=== PATIENT | female | born 1950 | race Caucasian/White ===

== ENCOUNTER 2017-11-07 09:15 | Inpatient (IN) | payer OTHER ==
[~2017-11-07] VITALS: Ht 167.6 cm; Wt 81.8 kg
[2017-11-07] MEDS ORDERED: CRESTOR10 MG (11:25)
[2017-11-07] MEDS ORDERED: VITAMINA D (11:25)
[2017-11-07] MEDS ORDERED: CLONAZEPAM0.5 M1 (11:25)
[2017-11-07] MEDS ORDERED: PAXIL CR25 MG (11:25)
[2017-11-07] MEDS ORDERED: CITRACAL + D E1 EACH (11:25)
[2017-11-07] MEDS ORDERED: TOPROL XL25 M1 (11:26)
[2017-11-16] MEDS ORDERED: GABAPENTIN800 MG PO (13:56)
[2017-11-16] MEDS ORDERED: DOCUSATE SODIU100 MG PO (13:56)
[2017-11-16] MEDS ORDERED: CIPROFLOXACIN750 MG PO (13:57)
[2017-11-16] MEDS ORDERED: CLONAZEPAM1 MG PO (13:57)
[2017-11-16] MEDS ORDERED: ULTRACET PO (14:26)
== END 2017-11-16 15:35 | disposition home or self-care (01) | DRG 454 ==
LOC: PED 11-15 05:50 → O/R 11-15 05:50 → SURH 11-15 09:15 → PED 11-15 16:00
PROVIDERS: Orthopaedic Surgery Orthopaedic Surgery of the Spine
PROC: 0SG1071 Fusion of 2 or more Lumbar Vertebral Joints with Autologous Tissue Substitute, Posterior Approach, Posterior Column, Open Approach (ICD-10-PCS; 2017-11-15)
PROC: 0SG10A0 Fusion of 2 or more Lumbar Vertebral Joints with Interbody Fusion Device, Anterior Approach, Anterior Column, Open Approach (ICD-10-PCS; 2017-11-15)
PROC: 0ST40ZZ Resection of Lumbosacral Disc, Open Approach (ICD-10-PCS; 2017-11-15)
PROC: 0SG30AJ Fusion of Lumbosacral Joint with Interbody Fusion Device, Posterior Approach, Anterior Column, Open Approach (ICD-10-PCS; 2017-11-15)
PROC: 07DS3ZZ Extraction of Vertebral Bone Marrow, Percutaneous Approach (ICD-10-PCS; 2017-11-15)
PROC: 0SG30A0 Fusion of Lumbosacral Joint with Interbody Fusion Device, Anterior Approach, Anterior Column, Open Approach (ICD-10-PCS; principal; 2017-11-15 12:30)
DX: M43.17 Spondylolisthesis, lumbosacral region (principal); M47.16 Other spondylosis with myelopathy, lumbar region; M48.07 Spinal stenosis, lumbosacral region; M51.17 Intervertebral disc disorders with radiculopathy, lumbosacral region; I10 Essential (primary) hypertension; J45.998 Other asthma